=== PATIENT | female | born 1955 | race Caucasian/White ===

== ENCOUNTER 2019-04-29 12:09 | Outpatient (REF) | payer BC, SELFPAY ==
--- NOTE | 2019-04-29 11:00 | SKI_PTH ---
PATIENT: Eleanor Eastman LOC: [facility] U#:[id number] AGE/SX: 63/F ROOM: RE04/29/[address]: Rafa Akers : 1955 BED: DIS: 04/29/2019 SPEC #: [id number] RECD: 05/02/19 12:32 STATUS: QIAN REKiersten #: [id number] AVEL: 04/29/19 11:[address]: Rafa Akers DEPT: Surgical Specimen RECD BY: Dionna Walsh Tissues: 1 - SKIN BIOPSY(SHAVE/PUNCH) Procedures: SKIN LEVEL 4 Comments: [id number]
[2019-04-29 20:03] LABS: TSH 2.94 uIU/mL (0.36-3.74); Vitamin B12 527 pg/mL (193-986)
[2019-04-29 20:18] LABS: Hemoglobin A1C 6.2 % (3.8-5.6)
== END 2019-04-29 12:29 ==
LOC: NCHCN 12:09
PROVIDERS: PCP Internal Medicine; Visit Provider Internal Medicine
DX: M79.2 Neuralgia and neuritis, unspecified (principal); L82.1 Other seborrheic keratosis
CPT/HCPCS: 82607; 83036; 84443; 88305

== ENCOUNTER 2019-11-02 13:59 | Outpatient (REF) | payer MEDICARE, OTHER, SELFPAY ==
[2019-11-02 21:51] LABS: ALT 23 U/L (14-59); Anion Gap 10.4 mmol/L (3-11); BUN 20 mg/dL (7-18); CO2 27.6 mmol/L (21.0-32.0); CREATININE 0.68 mg/dL (0.55-1.02); Calcium 9.3 mg/dL (8.5-10.1); Calculated LDL 89 mg/dL (<100); Chloride 104 mmol/L (98-107); Cholesterol 182 mg/dL (<200); Glucose 97 mg/dL (74-106); HDL Cholesterol 73 mg/dL (40-60); Potassium 4.5 mmol/L (3.5-5.1); Sodium 142 mmol/L (136-145); Triglyceride 102 mg/dL (<150)
[2019-11-02 22:03] LABS: Creatine Kinase 68 U/L (26-192)
== END 2019-11-02 14:19 ==
LOC: NCHCN 13:59
PROVIDERS: PCP Internal Medicine; Visit Provider Internal Medicine
DX: R73.03 Prediabetes (principal); E78.5 Hyperlipidemia, unspecified
CPT/HCPCS: 80048; 80061; 82550; 84460

== ENCOUNTER 2020-03-30 18:24 | Outpatient (REF) | payer MEDICARE, OTHER, SELFPAY ==
[2020-03-30 19:57] LABS: HCT 38.1 % (36.0-46.0); HGB 12.1 g/dL (11.2-15.7); Iron 32 ug/dL (50-170); MCHC 31.8 % (32.0-36.0); MCV 81.9 fL (80-95); MPV 10.5 fL (8.0-11.0); Platelet Count 323 10^3/uL (130-400); RBC 4.65 10^6/uL (3.93-5.22); RDW 18.3 % (11.7-14.6); RDW-SD 54.8 fL; Total Iron Binding Capacity 310 ug/dL (250-450); Transferrin Sat 10 % (15-50)
[2020-03-30 20:11] LABS: Ferritin 17 ng/mL (8-252)
[2020-03-30 20:18] LABS: C-Reactive Protein 0.13 mg/dL (0.0-0.3)
[2020-03-30 21:33] LABS: ESR 18 mm/hr (0-30)
== END 2020-03-30 18:44 ==
LOC: NCHCN 18:24
PROVIDERS: PCP Internal Medicine; Visit Provider Internal Medicine
DX: D64.9 Anemia, unspecified (principal); M54.32 Sciatica, left side
CPT/HCPCS: 85027; 85652; 82728; 83540; 83550; 86140

== ENCOUNTER 2020-11-02 16:06 | Outpatient (REF) | payer MEDICARE, OTHER, SELFPAY ==
[2020-11-02 18:48] LABS: HCT 39.4 % (36.0-46.0); HGB 12.9 g/dL (11.2-15.7); MCH 28.7 pg (27.0-33.0); MCHC 32.7 % (32.0-36.0); MCV 87.6 fL (80-95); MPV 10.7 fL (8.0-11.0); Platelet Count 275 10^3/uL (130-400); RDW 13.2 % (11.7-14.6); RDW-SD 42.5 fL; WBC 5.41 10^3/uL (4.4-10.8)
[2020-11-02 19:37] LABS: ALT 41 U/L (14-59); Calculated LDL 91 mg/dL (<100); Cholesterol 179 mg/dL (<200); Glucose 91 mg/dL (74-106); HDL Cholesterol 65 mg/dL (40-60); Triglyceride 116 mg/dL (<150)
== END 2020-11-02 16:07 | disposition home or self-care (01) ==
LOC: NCHCN 16:06
PROVIDERS: PCP Internal Medicine; Visit Provider Internal Medicine
DX: R73.03 Prediabetes (principal); E78.5 Hyperlipidemia, unspecified; E61.1 Iron deficiency
CPT/HCPCS: 80061; 82947; 85027; 84460

== ENCOUNTER 2023-01-12 19:42 | Outpatient (REF) | payer MEDICARE, SELFPAY ==
[2023-01-12 20:12] LABS: ALT 30 U/L (14-59); Anion Gap 10.4 mmol/L (3-11); BUN 14 mg/dL (7-18); CO2 26.6 mmol/L (21.0-32.0); CREATININE 0.8 mg/dL (0.55-1.02); Calcium 9.2 mg/dL (8.5-10.1); Calculated LDL 90 mg/dL (<100); Chloride 105 mmol/L (98-107); Cholesterol 205 mg/dL (<200); Creatine Kinase 71 U/L (26-192); Estimated GFR 80.21 (mL/min/1.73m2); Glucose 156 mg/dL (74-106); HDL Cholesterol 75 mg/dL (40-60); Potassium 4.1 mmol/L (3.5-5.1); Sodium 142 mmol/L (136-145); Triglyceride 201 mg/dL (<150)
== END 2023-01-12 19:43 | disposition home or self-care (01) ==
LOC: NCHCN 19:42
PROVIDERS: PCP Internal Medicine; Visit Provider Internal Medicine
DX: E78.5 Hyperlipidemia, unspecified (principal); R73.03 Prediabetes; K21.9 Gastro-esophageal reflux disease without esophagitis; R03.0 Elevated blood-pressure reading, without diagnosis of hypertension; M54.32 Sciatica, left side; Z00.00 Encounter for general adult medical examination without abnormal findings
CPT/HCPCS: 80048; 80061; 82550; 84460

== ENCOUNTER 2023-09-09 18:34 | Outpatient (REF) | payer MEDICARE, SELFPAY ==
[2023-09-09 20:25] LABS: Abs Immature Grans 0.02 10^3/uL (0.0-0.06); Absolute Basophil Count 0.05 10^3/uL (0.0-0.2); Absolute Eosinophil Count 0.13 10^3/uL (0.0-0.7); Absolute Lymphocyte Count 2.08 10^3/uL (1.2-3.4); Absolute Monocyte Count 0.53 10^3/uL (0.1-0.8); Absolute Neutrophil Count 4.21 10^3/uL (1.2-6.7); Basophils % 0.7 %; Eosinophils % 1.9 %; HCT 40.2 % (36.0-46.0); HGB 13.2 g/dL (11.2-15.7); Immature Grans % 0.3 %; Lymphocytes % 29.6 %; MCH 28.9 pg (27.0-33.0); MCHC 32.8 % (32.0-36.0); MCV 88 fL (80-95); Monocytes % 7.5 %; Platelet Count 270 10^3/uL (130-400); RBC 4.56 10^6/uL (3.93-5.22); RDW-SD 41.7 fL; WBC 7.02 10^3/uL (4.4-10.8)
[2023-09-09 20:59] LABS: TSH 2.99 uIU/Ml (0.36-3.74)
[2023-09-09 21:27] LABS: FREE T4 0.69 ng/dL (0.76-1.46)
== END 2023-09-09 18:35 | disposition home or self-care (01) ==
LOC: NCHCN 18:34
PROVIDERS: PCP Internal Medicine; Visit Provider Internal Medicine
DX: K59.00 Constipation, unspecified (principal)
CPT/HCPCS: 84439; 84443; 85025

== ENCOUNTER 2024-02-01 18:30 | Outpatient (REF) | payer MEDICARE, SELFPAY ==
[2024-02-01 19:34] LABS: ALT 21 U/L (14-59); Anion Gap 8.2 mmol/L (3-11); BUN 16 mg/dL (7-18); CO2 28.8 mmol/L (21.0-32.0); CREATININE 0.8 mg/dL (0.55-1.02); Chloride 105 mmol/L (98-107); Creatine Kinase 63 U/L (26-192); Estimated GFR 79.71 (mL/min/1.73m2); Glucose 101 mg/dL (74-106); Potassium 4.7 mmol/L (3.5-5.1); Sodium 142 mmol/L (136-145)
[2024-02-01 19:50] LABS: Calculated LDL 70 mg/dL (<100); Cholesterol 176 mg/dL (<200); HDL Cholesterol 74 mg/dL (40-60); Triglyceride 161 mg/dL (<150)
== END 2024-02-01 18:31 | disposition home or self-care (01) ==
LOC: NCHCN 18:30
PROVIDERS: PCP Internal Medicine; Visit Provider Internal Medicine
DX: Z00.00 Encounter for general adult medical examination without abnormal findings (principal)
CPT/HCPCS: 80048; 80061; 82550; 84460

== ENCOUNTER 2024-02-29 19:36 | Outpatient (REF) | payer MEDICARE, SELFPAY ==
--- NOTE | 2024-02-29 10:35 | SKI_PTH ---
PATIENT: Eleanor Eastman LOC: [facility] U#:[id number] AGE/SX: 68/F ROOM: RE02/29/[address]: Rafa Akers : 1955 BED: DIS: 02/29/2024 SPEC #: [id number] RECD: 03/01/24 12:30 STATUS: QIAN REKiersten #: [id number] AVEL: 02/29/24 10:[address]: Rafa Akers DEPT: Surgical Specimen RECD BY: Dionna Walsh Tissues: 1 - SKIN BIOPSY(SHAVE/PUNCH) Procedures: SKIN LEVEL 4 Comments: [id number]
== END 2024-02-29 19:37 | disposition home or self-care (01) ==
LOC: NCHCN 19:36
PROVIDERS: PCP Internal Medicine; Visit Provider Internal Medicine
DX: D18.01 Hemangioma of skin and subcutaneous tissue (principal)
CPT/HCPCS: 88305